=== PATIENT | female | born 1970 | race Caucasian/White ===

== ENCOUNTER 2021-04-26 11:07 | Outpatient (CLI) | payer MEDICARE, MEDICAID ==
[2021-04-26 23:47] LABS: SARS-CoV-2 PCR by NAA Not Detected (NotDetected)
== END 2021-04-26 11:08 | disposition home or self-care (01) ==
LOC: LABBT 11:07
PROVIDERS: ATTEND Internal Medicine
DX: Z01.812 Encounter for preprocedural laboratory examination (principal); D64.9 Anemia, unspecified; R19.5 Other fecal abnormalities; Z20.822 Contact with and (suspected) exposure to COVID-19
CPT/HCPCS: U0003; U0005

== ENCOUNTER 2021-05-01 06:12 | Day surgery (SDC) | payer MEDICARE, MEDICAID ==
[2021-04-25 11:02] VITALS: BMI 31.8
[2021-05-01] MEDS ORDERED: ePHEDrine 50 MG/ML VIAL ONE (08:10)
[2021-05-01] MEDS ORDERED: Lidocaine 1% PF 5 ML VIAL ONE (08:10)
[2021-05-01] MEDS ORDERED: PROPOFOL 200 MG/20 ML VIAL ONE (08:10)
== END 2021-05-01 10:06 | disposition home or self-care (01) ==
LOC: SDC 06:12
PROVIDERS: ATTEND Internal Medicine
PROC: 0DJ08ZZ Inspection of Upper Intestinal Tract, Via Natural or Artificial Opening Endoscopic (ICD-10-PCS; principal; 2021-05-01)
PROC: 0DBN8ZX Excision of Sigmoid Colon, Via Natural or Artificial Opening Endoscopic, Diagnostic (ICD-10-PCS; 2021-05-01)
DX: D53.9 Nutritional anemia, unspecified (principal); D12.5 Benign neoplasm of sigmoid colon; K22.2 Esophageal obstruction; K63.89 Other specified diseases of intestine; Z79.899 Other long term (current) drug therapy; Z93.1 Gastrostomy status
CPT/HCPCS: 88305; J2704; J3490